=== PATIENT | female | born 1965 | race Caucasian/White ===

== ENCOUNTER 2017-04-13 16:21 | Emergency (ER) | payer OTHER ==
[~2017-04-13] VITALS: Ht 165.1 cm; Wt 58.6 kg
[2017-04-13 16:25] VITALS: Ht 165.1 cm; Wt 58.6 kg
[2017-04-13] MEDS ORDERED: LIDOCAINE 1% (MDV) 20 ML INJ SC ONE (17:00)
[2017-04-13] MEDS ORDERED: CEPH-443 PO (17:40)
[2017-04-13] MEDS ORDERED: IBUP800T25 PO (17:40)
[2017-04-13] MEDS ORDERED: SULF1TAB31 PO (17:40)
--- NOTE | 2017-04-13 23:59 | ERD ---
ER Documentation Chief Complaint Chief Complaint ABSCESS IN THE LEFT FORARM HPI 51-year-old female presented ED complaining of abscess in the left forearm 1 week. States that he has gotten worse the last 2 days, become more painful. Patient injected herself with heroin at the same site about 2 weeks ago. Stated that she is a recovering drug addict, and had a relapse 2 weeks ago. She had not used since. Denies fever or chills. Patient has a 1 pack per day cigarette use history, denies current alcohol use. Denies other illicit drug use. ROS All systems reviewed and are negative except as per history of present illness. Medications Home Meds Active Scripts Sulfamethoxazole/Trimethoprim* (Bactrim Ds* Tablet) 1 Each Tablet, 1 TAB PO BID , #14 TAB Prov:KEVEN DE LOS SANTOS. YARN SIZER 04/13/17 Cephalexin* (Keflex*) 500 Mg Capsule, 500 MG PO QID for 7 Days, CAP Prov:KEVEN DE LOS SANTOS. YARN SIZER 04/13/17 Ibuprofen* (Motrin*) 800 Mg Tab, 800 MG PO Q6H Y for PAIN AND OR ELEVATED TEMP, #30 TAB Prov:KEVEN DE LOS SANTOS. YARN SIZER 04/13/17 PMhx/Soc Medical and Surgical Hx: pt denies Medical Hx, pt denies Surgical Hx Hx Alcohol Use: No Hx Substance Use: No Hx Tobacco Use: Yes Smoking Status: Current every day smoker Physical Exam Vitals Vital Signs Date Time Temp Pulse Resp B/P Pulse Ox O2 Delivery O2 Flow Rate FiO2 04/13/17 16:25 98.0 84 18 100/60 98 Physical Exam General: Well-developed, well-nourished, conscious and coherent, in no distress Skin: Warm and dry without rash, good texture and turgor. A 2 cm x 3 cm area induration with slight fluctuance noted on the left forearm, tender, not erythematous. Head: Normocephalic without evidence of trauma Eyes: Sclera and conjunctivae normal; pupils equal, round, and reactive to light; extraocular movements are intact Chest: Normal AP diameter. Good expansion without retractions. Nontender. Lungs are clear to auscultate bilaterally with good tidal volume Heart: Regular rate and rhythm. No murmur, rub, or gallops heard Extremities: Full range of motion. Good strength bilaterally. No clubbing, cyanosis, or edema. Peripheral pulses are intact. Sensation intact Neuro: Alert and oriented 4, GCS 15. Cranial nerves grossly intact. Motor and sensory exams nonfocal. Moves all extremities. Speech clear. Gait normal Results 24 hrs Current Medications Medications (Trade) Dose Ordered Sig/Porter Route PRN Reason Start Time Stop Time Status Last Admin Dose Admin Lidocaine (Xylocaine 1% (Mdv) 20 ml) 20 ml ONCE ONCE SC 04/13/17 17:00 04/13/17 17:01 DC Procedures/MDM Procedure note: Incision and Drainage Verbal consent obtained for incision and drainage of patient's abscess. The area was prepped with Betadine. Lidocaine 1% was infiltrated for local anesthesia. After appropriate anesthesia, incision was made using #11 blade. Small amount of purulent discharge was drained from the abscess. The abscess was probed for loculation. Iodoform 1/4" packing tape was inserted into the abscess. The wound was then cleaned and dressed. Patient tolerated procedure well. Patient appears well, stable for discharge and outpatient management. Medical decision making shared with patient and family. Education provided to patient and family. Patient and family expressed understanding of the plan. Medications on discharge: Bactrim DS, Keflex. Follow-up: Return to eating 2 days for wound check and dressing change. Disclaimer: Inadvertent spelling and grammatical errors are likely due to EHR/ dictation software use and do not reflect on the overall quality of patient care. Also, please note that the electronic time recorded on this note does not necessarily reflect the actual time of the patient encounter. Departure Diagnosis: Primary Impression: Abscess Condition: Stable Patient Instructions: Abscess, Incision And Drainage, Drug Abuse Referrals: DOCTOR,NOT ON STAFF (PCP) [facility] YOU HAVE RECEIVED A MEDICAL SCREENING EXAM AND THE RESULTS INDICATE THAT YOU DO NOT HAVE A CONDITION THAT REQUIRES URGENT TREATMENT IN THE EMERGENCY DEPARTMENT. FURTHER EVALUATION AND TREATMENT OF YOUR CONDITION CAN WAIT UNTIL YOU ARE SEEN IN YOUR DOCTORS OFFICE WITHIN THE NEXT 1-2 DAYS. IT IS YOUR RESPONSIBILITY TO MAKE AN APPOINTMENT FOR FOLOW-UP CARE. IF YOU HAVE A PRIMARY DOCTOR --you should call your primary doctor and schedule an appointment IF YOU DO NOT HAVE A PRIMARY DOCTOR YOU CAN CALL OUR PHYSICIAN REFERRAL HOTLINE AT IF YOU CAN NOT AFFORD TO SEE A PHYSICIAN YOU CAN CHOSE FROM THE FOLLOWING [facility] [address] [facility] [address] [facility] [address] [facility] [address] [facility] [address] [facility]. [facility] [address] Additional Instructions: Return to this facility in 2 DAYS for a follow-up exam.Return sooner if your condition worsens. KEVEN DE LOS SANTOS NP Apr 13, 2017 23:59
== END 2017-04-13 17:55 | disposition home or self-care (01) ==
LOC: FTE 16:21
DX: L02.414 Cutaneous abscess of left upper limb (principal); F17.210 Nicotine dependence, cigarettes, uncomplicated
CPT/HCPCS: 10061; Z7502; Z7610